=== PATIENT | female | born 1975 | race Caucasian/White ===

== ENCOUNTER 2024-10-10 08:21 | Outpatient (AMB) | payer OTHER, SELFPAY ==
--- NOTE | 2024-10-10 13:00 | A.OFFVIS_ITS ---
VS Expanded 10/10/24 13:22 Height 5 ft 7 in Weight 219 lb 2 oz BMI 34.3 Body Fat % 41.1 Body Fat Mass 90.2 Fat Free Mass 129 Visceral Fat Rating 10 Body Water % 42 Body Water Mass 92 Basal Metabolic Rate/Score 1,785 Intake Visit Reasons: [facility] [facility] Allergies amoxicillin Allergy (Severe, Verified 10/10/24 13:00) Anaphylaxis Medication List - Last Reconciled 10/10/24 by Kimo Galloway MD levothyroxine 175 mcg PO DAILY HPI HPI [facility] [facility] [facility]: Details: Start time: 12.50pm, End time: 1.40pm ?I spent 45 minutes speaking with the patient on the phone plus an additional 5 minutes reviewing and updating records for a total of 50 minutes HPI Comments Details: Vitamins were last checked by her PCP in 2024 and used vitamin D and B12 Previous weight loss efforts: history of gastric bypass (Pre bypass weight: 315lbs, lowest: 170lbs) Wakes up: 5am, Sleeps: 9pm Breakfast: 8am (yogurt with banana) Lunch: 1pm (egg salad, chicken, soup) Dinner: 6pm (burger, vegetables, chicken, rice, cheese): 10 forks of chicken and 10 forks of salad Snacks: 4pm (fruit or bar) Exercise: has Elliptical that does not track calories Beverages: Coffee: (1 cup x5/wk with cream), Tea: none, Juice: none, Soda: none, ETOH: none PFSH Medical History (Updated 10/10/24 @ 13:30 by Kimo Galloway MD) DJD (degenerative joint disease) Hypothyroidism BMI 34.0-34.9,adult Obesity Surgical History (Updated 07/27/24 @ 15:38 by Lisbet Blue CMA) S/P panniculectomy History of removal of laparoscopic gastric banding device Hx of laparoscopic gastric banding Hx of hernia repair Hx of gastric bypass Family History (Updated 07/27/24 @ 15:28 by Lisbet Blue CMA) Mother Diabetes Father No problems noted. Daughter No problems noted. Son Obesity Social History (Updated 07/27/24 @ 15:28 by Lisbet Blue CMA) Alcohol intake: never Patient Tobacco Use Status: Never used Tobacco Telehealth Telehealth Telehealth Platform: Telephone Location of provider rendering services: practice address Location of patient: address on file Patient Identification confirmed using: Name, : Yes Telehealth method: voice only Patient verbally consented to treatment: Yes Patient verbally consented to billing insurance company: Yes Patient informed of any privacy concerns related to visit: Yes Minutes spent on Phone/Video with Pt.: 50 Assessment & Plan Assessment & Plan (1) Obesity: Code(s): E66.9 - Obesity, unspecified Category: Medical Qualifiers: Obesity type: due to excess calories Obesity classification: adult class 1 (BMI 30 - 34.9) Serious obesity comorbidity presence: without serious comorbidity Body mass index: BMI 34.0-34.9 Qualified Code(s): E66.811 - Obesity, class 1; E66.09 - Other obesity due to excess calories; Z68.34 - Body mass index [BMI] 34.0-34.9, adult Plan: 1.?Nutritional counseling. Start with one [employer] protein shake (mix 1 scoop of the Booster with 1/2 scoop of the Meal Replacement powder with 8oz low fat unsweetened almond milk each) at 6am-8am, one protein bar (Fit Crunch protein bar, buy at [employer], or [employer]) at 9am-11am, another Herbalife protein shake (mix 1 scoop of the Booster with 1/2 scoop of the Meal Replacement powder with 8oz low fat unsweetened almond milk each) at 12pm-2pm, another [employer] Crunch protein bar at 3pm-5pm, dinner at 6pm (8 forks of protein and 8 forks of salad/vegetables). If hungry, please have HALF protein bar at 8pm-9pm. So you do 2 protein shakes, 2 to 2.5 protein bars and one meal per day. Meal to include lean meat (beef, fish, pork, turkey, chicken), or czech yogurt, or egg whites, or beans with a salad with olive oil and fruits (berries, pears, apples, kiwi). Avoid salt, breads, potatoes, rice, pasta, desserts. 3. Each shake would be drunk slowly, like coffee in a period of 2 hours. 4. Cut each bar in 4 pieces and eat each piece in 30min ?to make each bar last 2 hours. 5. I emphasized the importance of measuring accurately the food portion and measure it when serving the food in plate 6. The meal portions include 6 full-size forks of meat and 6 full-size forks of salad. You always eat the meat portion but you can replace up to 3 forks for salad/vegetables with rice, potatoes or pasta, or a fruit ?if you like. The less you do it the better weight loss will be. 7. One full-size fork is what it can be scooped on the fork without falling aside and not what can be bit with the fork. Use regular forks like those you find in a typical restaurant. 8.? Please send me weight measurements with your body composition scale as soon as possible and then once a week. Always include your diet and exercise plan. 9. Start Elliptical, 3 times per day for 15 minutes per work-out for a total of 45 minutes per day, daily 10. 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 I ordered a medication to help you with the weight loss which is called Zepbound. My office will try to authorize it. Please let me know when you receive it so I can give you a meal and exercise plan. Common side effects include nausea, vomiting, constipation, diarrhea, abdominal pain. Please let me know if you develop any of these symptoms. 11.?It is important of avoiding and for at least 18 months postoperatively and has been discussed at the infosession. 12. Goal is to lose at least 1.5-2lbs per week 13. Goal to lose at least 10% of your weight, which is about 19lbs. Minimum weight goal: 200lbs 14. Please follow the diet plan exactly without any change. If you don't like something about the plan or you feel hungry you need to communicate with me so I can help you revise the plan. You should not change the plan yourself Medications: New tirzepatide (weight loss) (Zepbound) for 4 weeks 2.5 mg (0.5 mL) subcut QWEEK 2 mL 0RF E66.9 - Obesity, unspecified, Z68.34 - Body mass index [BMI] 34.0-34.9, adult
[2024-10-10 13:22] VITALS: BMI 34.3
== END 2024-10-10 13:41 | disposition home or self-care (01) ==
LOC: HO.HBS 08:21
PROVIDERS: PCP Internal Medicine; Visit Provider Surgery
DX: E66.811 Obesity, class 1 (principal); E66.09 Other obesity due to excess calories; Z68.34 Body mass index [BMI] 34.0-34.9, adult
CPT/HCPCS: 99204